=== PATIENT | male | born 1930 | race Caucasian/White ===

== ENCOUNTER → 2017-09-14 | Outpatient (CLI) | payer MEDICARE, BC ==
[~2017-09-14] MED LIST: ASPI1TAB57 PO; ASPI81TA82 PO; FINA1TAB2 PO; FINA5TAB2 PO; GABA100C4 PO; GLIM2TAB PO; LISI-363 PO; LISI-515 PO; PERC5TAB12 PO; SIMV40TA PO; VICT18IN SQ; ZOCO40TA PO; fentaNYL CITRATE 250 MCG/5 ML AMP ONE
[2017-09-14 14:00] LABS: BICARBONATE 27.2 MEQ/L (21.0-32.0); CALCIUM 9.6 MG/DL (8.5-10.1); CREATININE 1.52 MG/DL (0.60-1.30); PROTHROMBIN TIME - PATIENT 10.2 SEC (9.8-11.6)
[2017-09-14 14:01] LABS: HEMOGLOBIN 14.8 GM/DL (13.0-17.0); MEAN CELL VOLUME 90.8 FL (80.0-100.0); MEAN CORPUSCULAR HEMOGLOBIN 30.6 PG (27.0-34.0); MEAN CORPUSCULAR HGB CONC 33.7 % (32.0-36.0); MEAN PLATELET VOLUME 10.1 FL (7.0-11.0); PLATELET COUNT 154 TH/MM3 (150-450); RED BLOOD COUNT 4.84 MIL/MM3 (4.50-5.90); RED CELL DISTRIBUTION WIDTH 13.6 % (11.6-17.2); WHITE BLOOD COUNT 8.8 TH/MM3 (4.0-11.0)
--- NOTE | 2017-09-15 15:27 | EKG ---
Date Performed: 09/14/2017 Time Performed: 13:32:18 PTAGE: 87 years EKG: Sinus rhythm NORMAL ECG NO PREVIOUS TRACING DOCTOR: Danie Lind Interpretating Date/Time 09/15/2017 15:21:42
== END ==
LOC: CPRE 13:03
PROVIDERS: ATTEND Surgery
DX: Z01.812 Encounter for preprocedural laboratory examination (principal); Z01.810 Encounter for preprocedural cardiovascular examination; I71.4 Abdominal aortic aneurysm, without rupture
CPT/HCPCS: 36415; 80048; 85027; 85610; 93005

== ENCOUNTER 2017-09-17 07:08 | Inpatient (IN) | payer MEDICARE, BC ==
[~2017-09-17] VITALS: Ht 177.8 cm; Wt 91.2 kg
[~2017-09-17 07:08] MED LIST changes: -PERC5TAB12 PO; -fentaNYL CITRATE 250 MCG/5 ML AMP ONE
[2017-09-17] MEDS ORDERED: PROTAMINE SULFATE 50 MG/5 ML VIAL ONE (07:33)
[2017-09-17] MEDS ORDERED: HEPARIN SODIUM - IV 10,000 UNITS/10 ML VIAL ONE (07:33)
[2017-09-17] MEDS ORDERED: THROMBIN (TOPICAL) 20,000 UNIT SPRAY KIT ONE (07:34)
[2017-09-17] MEDS ORDERED: ceFAZolin 2 GM PREMIX 50 ML ONE (07:34)
[2017-09-17] MEDS ORDERED: LACTATED RINGER'S 1000 ML IV PRN (07:45)
[2017-09-17] MEDS ORDERED: POVIDONE IODINE 5% (ANTISEPSIS KIT) 4 APPLICATIONS EACH NARE PRN (07:45)
[2017-09-17] MEDS ORDERED: SODIUM CHLORID 0.9% 500 ML IV PRN (07:45)
[2017-09-17] MEDS ORDERED: CHLORHEXIDINE GLUCONATE 2 % 1 PACK (2 CLOTHS) TOPICAL PRN (07:45)
[2017-09-17] MEDS ORDERED: METOPROLOL TARTRATE 25 MG TAB PO PRN (07:45)
--- NOTE | 2017-09-17 08:47 | PD.VS.PN ---
Pre-operative Note Pre-operative diagnosis: AAA Planned procedure: EVAR Interval History: Pt has been feeling well. No F/C or other changes in health that would preclude OR. Labs: Hct 44 creatinine 1.5 INR 1.0 Blood: T&S Imaging: CTA reviewed Orders: NPO Ancef 2g IV OCTOR Post-operative destination: PACU, CPCU Operative site marked: No (aortic surgery) Consent: Informed consent has been obtained from Christiano Zayas. I have explained the procedure in detail and discussed the risks, benefits, and potential complications. All questions have been answered. Patient contact information: Fred[place] [phone] David Cotter MD Sep 17, 2017 08:47
[2017-09-17] MEDS ORDERED: IOHEXOL 350 MG/ML 50 ML BTL (for RAD DIAG) IVCONTRAST ONE (10:32)
--- NOTE | 2017-09-17 10:38 | HHI.PR ---
cc: David Cotter MD Immediate Post Op Note Procedure Date: Sep 17, 2017 Pre Op Diagnosis: AAA Post Op Diagnosis: AAA Surgeon: David Cotter Director [employer] Engineering(s): David Vicente Procedure: EVAR with 2 docking limbs B MASTER SHIP Perclose (18F R, 14F L) Findings: successful EVAR Strong B LE Doppler signals Additional Information: 9 min fluoroscopy time 60mL IV contrast Complications: none Specimen(s) removed: none Estimated blood loss: 50mL Anesthesia: General Drains: None Fluids: 1600mL IVF Urinary Output (mLs): 150 Patient to: PACU Patient Condition: Good Implant/Devices: SEE IMPLANT LOG (if applicable) Date/Time of Procedure: SEE SURGICAL CARE RECORD David Cotter MD Sep 17, 2017 10:37
[2017-09-17] MEDS ORDERED: HYDROmorphone HCL 2 MG TAB PO PRN (10:45)
[2017-09-17] MEDS ORDERED: LACTULOSE SYRUP 20 GM/30 ML CUP PO PRN (10:45)
[2017-09-17] MEDS ORDERED: MAGNESIUM HYDROXIDE SUSP 30 ML CUP PO PRN (10:45)
[2017-09-17] MEDS ORDERED: SENNOSIDES 8.6 MG TAB PO PRN (10:45)
[2017-09-17] MEDS ORDERED: BISACODYL 10 MG SUPP RECTAL PRN (10:45)
[2017-09-17] MEDS ORDERED: DO NOT ADM ANY ANTICOAGULANT DRUGS PRN (11:30)
[2017-09-17] MEDS ORDERED: *morphine SULFATE 4 MG/ML PERIprocedure ONLY ONE ×2 (11:31→11:51)
[2017-09-17] MEDS ORDERED: NEOSTIGMINE 5 MG/5 ML SYRINGE IV PUSH ONE (12:00)
[2017-09-17] MEDS ORDERED: ROCURONIUM INJ 50 MG/5 ML SYRINGE IV PUSH ONE (12:00)
[2017-09-17] MEDS ORDERED: SODIUM CHLORID 0.9% 500 ML INJ 500 ML IV ONE (12:00)
[2017-09-17] MEDS ORDERED: ONDANSETRON HCL 4 MG/2 ML VIAL IV ONE (12:00)
[2017-09-17] MEDS ORDERED: NORMOSOL R INJ 1,000 ML IV ONE (12:00)
[2017-09-17] MEDS ORDERED: GLYCOPYRROLATE 1 MG/5 ML SYRINGE IV PUSH ONE (12:00)
[2017-09-17] MEDS ORDERED: DEXAMETHASONE SOD PHOS 4 MG/ML VIAL IV ONE (12:00)
[2017-09-17] MEDS ORDERED: PHENYLEPH/NS 1000 MCG/10 ML SYR IV ONE (12:00)
[2017-09-17] MEDS ORDERED: PROPOFOL 200 MG/20 ML AMP IV ONE (12:00)
[2017-09-17] MEDS ORDERED: fentaNYL CITRATE 250 MCG/5 ML AMP IV ONE (12:00)
[2017-09-17] MEDS ORDERED: LIDOCAINE HCL 1% PF 5 ML SYRINGE OTHER ONE (12:00)
[2017-09-17 17:44] VITALS: BP 187/91; PULSE 55; RESP 18; TEMP 97.6; O2SAT 98
[2017-09-17 19:00] VITALS: BP 135/63; PULSE 91; RESP 18; TEMP 98.8; O2SAT 97
[2017-09-17] MEDS ORDERED: GABAPENTIN 100 MG CAP PO SCH (21:00)
[2017-09-17] MEDS ORDERED: ATORVASTATIN 40 MG TAB PO SCH (21:00)
[2017-09-17] MEDS: DOCUSATE SODIUM 50 MG/SENNA 8.6 MG TAB PO SCH (21:00)
[2017-09-17] MEDS ORDERED: FAMOTIDINE 20 MG TAB PO SCH (21:00)
[2017-09-17] MEDS: FAMOTIDINE 20 MG TAB PO SCH (21:01)
[2017-09-17 23:00] VITALS: BP 129/63; PULSE 89; RESP 18; TEMP 98.7; O2SAT 98
[2017-09-18] VITALS (7 sets, daily range): BP systolic 136–145; BP diastolic 63–67; PULSE 68–88; RESP 18–22; TEMP 98.2–98.6; O2SAT 97–98
[2017-09-18 04:45] LABS: HEMOGLOBIN 13.2 GM/DL (13.0-17.0); MEAN CELL VOLUME 91.8 FL (80.0-100.0); MEAN CORPUSCULAR HEMOGLOBIN 30.3 PG (27.0-34.0); MEAN PLATELET VOLUME 9.9 FL (7.0-11.0); PLATELET COUNT 131 TH/MM3 (150-450); RED BLOOD COUNT 4.36 MIL/MM3 (4.50-5.90); RED CELL DISTRIBUTION WIDTH 13.5 % (11.6-17.2); WHITE BLOOD COUNT 11.5 TH/MM3 (4.0-11.0)
[2017-09-18 05:00] LABS: BICARBONATE 24.6 MEQ/L (21.0-32.0); CALCIUM 8.4 MG/DL (8.5-10.1); CREATININE 1.74 MG/DL (0.60-1.30)
[2017-09-18] MEDS ORDERED: ASPIRIN EC 81 MG TABEC PO SCH (09:00)
[2017-09-18] MEDS ORDERED: LIRAGLUTIDE 0.6 MG SQ SCH (09:00)
[2017-09-18] MEDS ORDERED: FINASTERIDE 5 MG TAB PO SCH (09:00)
[2017-09-18] MEDS ORDERED: LISINOPRIL 20 MG TAB PO SCH (09:00)
--- NOTE | 2017-09-18 09:14 | PD.VS.PN ---
Subjective POD #: 1 Procedure(s): EVAR with 2 docking limbs B PHYSICAL PLANT MANAGER Perclose (18F R, 14F L) Subjective/Hospital Course Pt sitting in chair alert in NAD w/o complaints Pt denied abdominal/back pain Bilat groins soft w/o hematoma or swelling LE warm w/ motor intact Objective Vitals/I&O Date Time Temp Pulse Resp B/P (MAP) Pulse Ox O2 Delivery O2 Flow Rate FiO2 09/18/17 08:00 73 09/18/17 07:00 98.2 72 18 136/63 (87) 97 09/18/17 07:00 68 09/18/17 06:00 88 09/18/17 03:00 80 09/18/17 03:00 98.6 80 22 145/67 (93) 97 09/17/17 23:00 98.7 89 18 129/63 (85) 98 09/17/17 23:00 89 09/17/17 19:43 Nasal Cannula 2.00 09/17/17 19:00 98.8 91 18 135/63 (87) 97 09/17/17 19:00 91 09/17/17 18:15 74 14 143/67 (92) 98 Nasal Cannula 3 09/17/17 18:00 72 14 153/69 (97) 98 Nasal Cannula 3 09/17/17 17:00 71 14 143/67 (92) 99 Nasal Cannula 3 09/17/17 16:00 72 14 133/63 (86) 98 Nasal Cannula 3 09/17/17 15:00 87 14 156/74 (101) 98 Nasal Cannula 3 09/17/17 14:00 67 14 130/60 (83) 98 Nasal Cannula 3 09/17/17 13:00 71 14 146/68 (94) 98 Nasal Cannula 3 09/17/17 12:00 64 14 134/63 (86) 97 Nasal Cannula 3 09/17/17 11:45 62 14 142/64 (90) 99 Nasal Cannula 3 09/17/17 11:30 59 14 135/66 (89) 99 Nasal Cannula 3 09/17/17 11:15 63 14 138/69 (92) 98 Nasal Cannula 3 09/17/17 11:00 65 14 131/65 (87) 96 Nasal Cannula 3 09/17/17 10:47 97.4 78 14 141/72 (95) 94 Nasal Cannula 3 09/18/17 09/18/17 09/18/17 07:00 15:00 23:00 Intake Total 240 ml Output Total 500 ml Balance -260 ml Exam: GENERAL: GCS 15, NAD, A&OX3 SKIN: LE Warm and dry w/ motor intact bilat groins s/nt w/o hematoma or swelling CARDIOVASCULAR: Regular rate and rhythm without murmurs, gallops, or rubs. RESPIRATORY: Breath sounds equal bilaterally. No accessory muscle use. GASTROINTESTINAL: Abdomen soft, non-tender, nondistended. MUSCULOSKELETAL: No cyanosis, or edema. Pt w/o pain Laboratory Laboratory Tests Test 09/18/17 03:45 White Blood Count 11.5 Red Blood Count 4.36 Hemoglobin 13.2 Hematocrit 40.0 Mean Corpuscular Volume 91.8 Mean Corpuscular Hemoglobin 30.3 Mean Corpuscular Hemoglobin Concent 33.0 Red Cell Distribution Width 13.5 Platelet Count 131 Mean Platelet Volume 9.9 Blood Urea Nitrogen 32 Creatinine 1.74 Random Glucose 249 Calcium Level 8.4 Sodium Level 138 Potassium Level 4.5 Chloride Level 105 Carbon Dioxide Level 24.6 Anion Gap 8 Estimat Glomerular Filtration Rate 37 Assessment and Plan Assessment: (1) AAA (abdominal aortic aneurysm) without rupture (2) S/P AAA (abdominal aortic aneurysm) repair Plan 87/ M s/p EVAR Pt w/o complaints Doing well Pt voided post cath removal w/o difficulties Plan Discussed post operative care and management w/ pt Pt clear for d/c Arranged out pt f/u with a surveillance CTA Sita Montiel NP [facility] [phone] Sita Montiel [facility] Sep 18, 2017 09:14
[2017-09-18] MEDS ORDERED: PERC5TAB12 PO (09:15)
--- NOTE | 2017-09-18 09:21 | PD.VS.DC ---
Discharge Summary Admission Date: Sep 17, 2017 at 07:08 Discharge Date: Sep 18, 2017 Admission Diagnosis: (1) AAA (abdominal aortic aneurysm) without rupture Discharge Diagnosis: (1) AAA (abdominal aortic aneurysm) without rupture ICD Codes: I71.4 - Abdominal aortic aneurysm, without rupture (2) S/P AAA (abdominal aortic aneurysm) repair ICD Codes: Z98.890 - Other specified postprocedural states; Z86.79 - Personal history of other diseases of the circulatory system Brief History from admission 87/M with a PMH of an AAA w/o rupture Pt admitted for repair Procedure(s): EVAR with 2 docking limbs B LEAD DENTAL ASSISTANT Perclose (18F R, 14F L) Significant Findings GENERAL: GCS 15, NAD, A&OX3 SKIN: LE Warm and dry w/ motor intact bilat groins s/nt w/o hematoma or swelling CARDIOVASCULAR: Regular rate and rhythm without murmurs, gallops, or rubs. RESPIRATORY: Breath sounds equal bilaterally. No accessory muscle use. GASTROINTESTINAL: Abdomen soft, non-tender, nondistended. MUSCULOSKELETAL: No cyanosis, or edema. Pt w/o pain Laboratory Tests Test 09/18/17 03:45 White Blood Count 11.5 TH/MM3 (4.0-11.0) Red Blood Count 4.36 MIL/MM3 (4.50-5.90) Platelet Count 131 TH/MM3 (150-450) Blood Urea Nitrogen 32 MG/DL (7-18) Creatinine 1.74 MG/DL (0.60-1.30) Random Glucose 249 MG/DL (74-106) Calcium Level 8.4 MG/DL (8.5-10.1) Estimat Glomerular Filtration Rate 37 ML/MIN (>89) Hospital Course: 87/M with a PMH of an AAA w/o rupture Pt admitted for repair Pt s/p EVAR POD #: 1 S/P EVAR with 2 docking limbs B LEAD DENTAL ASSISTANT Perclose (18F R, 14F L) Pt sitting in chair alert in NAD w/o complaints Pt denied abdominal/back pain Bilat groins soft w/o hematoma or swelling LE warm w/ motor intact Pt voids post cath removal w/o difficulty Pt clear for d/c Arranged out pt f/u with a surveillance CTA A/P post EVAR Allergies Coded Allergies Type Severity Reaction Last Updated Verified tetanus toxoid, adsorbed Allergy Severe 09/17/17 No 09/16/17 09/16/17 09/17/17 09/17/17 09/18/17 09/18/17 06:00 18:00 06:00 18:00 06:00 18:00 Intake Total 1960 ml 240 ml Output Total 800 ml 500 ml Balance 1160 ml -260 ml Intake Oral 360 ml 240 ml Other 1600 ml Output Urine Total 750 ml 500 ml Estimated Blood Loss 50 ml # Voids 3 # Bowel Movements 0 Laboratory Tests Test 09/18/17 03:45 White Blood Count 11.5 TH/MM3 Red Blood Count 4.36 MIL/MM3 Hemoglobin 13.2 GM/DL Hematocrit 40.0 % Mean Corpuscular Volume 91.8 FL Mean Corpuscular Hemoglobin 30.3 PG Mean Corpuscular Hemoglobin Concent 33.0 % Red Cell Distribution Width 13.5 % Platelet Count 131 TH/MM3 Mean Platelet Volume 9.9 FL Blood Urea Nitrogen 32 MG/DL Creatinine 1.74 MG/DL Random Glucose 249 MG/DL Calcium Level 8.4 MG/DL Sodium Level 138 MEQ/L Potassium Level 4.5 MEQ/L Chloride Level 105 MEQ/L Carbon Dioxide Level 24.6 MEQ/L Anion Gap 8 MEQ/L Estimat Glomerular Filtration Rate 37 ML/MIN Orders Procedure Category Date Status Time Lactated Ringer's MED 09/17/17 In Process 1000 Ml Inj (Lr 1000 M 07:45 Sodium Chlorid 0.9% MED 09/17/17 In Process 500 Ml Inj (Ns 500 M 07:45 Metoprolol Tartrate MED 09/17/17 In Process (Lopressor) 07:45 Povidone Iod 5% MED 09/17/17 In Process Antisepsis Kit 07:45 Chlorhexidine 2% MED 09/17/17 In Process Cloth (Chlorhexidine 07:45 Protamine Sulfate Inj MED 09/17/17 Complete (Protamine Sulfate 07:33 Heparin Inj (Heparin MED 09/17/17 Complete Inj) 07:33 Thrombin Top [place] MED 09/17/17 Complete (Thrombin Top [place]) 07:34 Cefazolin 2 Gm Premix MED 09/17/17 Complete (Ancef 2 Gm Premix 07:34 Type And Screen BBK 09/17/17 Complete 07:46 Endovascular Cath CATH 09/17/17 Logged Urinary Catheter SUNNI 09/17/17 Complete Management 09:41 Iohexol 350 Inj MED 09/17/17 Complete (Omnipaque 350 Inj) 10:32 Admit To Inpatient ADMITTING 09/17/17 Transmitted Code Status CODE 09/17/17 Transmitted 10:38 Vital Signs (Adult) SUNNI 09/17/17 In Process 10:38 Senior Maintenance Mechanic / SUNNI 09/17/17 In Process Telemetry 10:38 Activity Oob Ad Christianne SUNNI 09/18/17 In Process 08:00 Activity Bed Rest SUNNI 09/17/17 In Process 10:38 Precautions SUNNI 09/17/17 In Process 10:38 Diet Heart Healthy DIET 09/17/17 Transmitted Lunch Basic Metabolic Panel LAB 09/18/17 Complete (Bmp) 06:00 Cbc No Diff, Includes LAB 09/18/17 Complete Plts 06:00 Famotidine (Pepcid) MED 09/17/17 Complete 21:00 Atorvastatin (Lipitor) MED 09/17/17 In Process 21:00 Oxycodone (Roxicodone) MED 09/17/17 In Process 10:45 Hydromorphone MED 09/17/17 In Process (Dilaudid) 10:45 Scd Bilateral/Knee SUNNI 09/17/17 In Process High 10:38 Docusate Sodium-Senna MED 09/17/17 In Process (Keily-Colace) 21:00 Magnesium Hydroxide MED 09/17/17 In Process Liq (Milk Of Magnesi 10:45 Sennosides (Senokot) MED 09/17/17 In Process 10:45 Bisacodyl Supp MED 09/17/17 In Process (Dulcolax Supp) 10:45 Lactulose Liq MED 09/17/17 In Process (Lactulose Liq) 10:45 Inpatient ADMITTING 09/17/17 Transmitted Certification Remove Urinary SUNNI 09/17/17 In Process Catheter 17:00 Aspirin Ec (Ecotrin MED 09/18/17 In Process Ec) 09:00 Finasteride (Proscar) MED 09/18/17 In Process 09:00 Gabapentin (Neurontin) MED 09/17/17 In Process 21:00 Lisinopril (Prinivil) MED 09/18/17 In Process 09:00 Patient Own Medication MED 09/18/17 In Process 09:00 Enoxaparin Inj MED 09/18/17 In Process (Lovenox Inj) 10:00 [facility] MED 09/17/17 In Process Information 11:30 *Morphine Inj MED 09/17/17 Complete (*Morphine Inj 11:31 *Morphine Inj MED 09/17/17 Complete (*Morphine Inj 11:51 Fentanyl Inj MED 09/17/17 Complete (Fentanyl Inj) 12:00 Famotidine (Pepcid) MED 09/17/17 In Process 21:00 Am Admit Pre Op Care [facility] 09/17/17 Complete Class Iv Pacu Ea 30 [facility] 09/17/17 Complete MIN General/Pacu [facility] 09/17/17 Complete Post Anesthesia Oxygen [facility] 09/17/17 Complete Pacu Cpcu Holding [facility] 09/17/17 Complete Hourly Attending Discharge DISCHARGE 09/18/17 Transmitted Order 09:15 Vital Signs Date Time Temp Pulse Resp B/P (MAP) Pulse Ox O2 Delivery O2 Flow Rate FiO2 09/18/17 08:00 73 09/18/17 07:00 98.2 72 18 136/63 (87) 97 09/18/17 07:00 68 09/18/17 06:00 88 09/18/17 03:00 80 09/18/17 03:00 98.6 80 22 145/67 (93) 97 09/17/17 23:00 98.7 89 18 129/63 (85) 98 09/17/17 23:00 89 09/17/17 19:43 Nasal Cannula 2.00 09/17/17 19:00 98.8 91 18 135/63 (87) 97 09/17/17 19:00 91 09/17/17 18:15 74 14 143/67 (92) 98 Nasal Cannula 3 09/17/17 18:00 72 14 153/69 (97) 98 Nasal Cannula 3 09/17/17 17:00 71 14 143/67 (92) 99 Nasal Cannula 3 09/17/17 16:00 72 14 133/63 (86) 98 Nasal Cannula 3 09/17/17 15:00 87 14 156/74 (101) 98 Nasal Cannula 3 09/17/17 14:00 67 14 130/60 (83) 98 Nasal Cannula 3 09/17/17 13:00 71 14 146/68 (94) 98 Nasal Cannula 3 09/17/17 12:00 64 14 134/63 (86) 97 Nasal Cannula 3 09/17/17 11:45 62 14 142/64 (90) 99 Nasal Cannula 3 09/17/17 11:30 59 14 135/66 (89) 99 Nasal Cannula 3 09/17/17 11:15 63 14 138/69 (92) 98 Nasal Cannula 3 09/17/17 11:00 65 14 131/65 (87) 96 Nasal Cannula 3 09/17/17 10:47 97.4 78 14 141/72 (95) 94 Nasal Cannula 3 09/17/17 08:08 97.7 83 20 155/88 (110) 96 Discharge Condition: Good Discharge Disposition: Discharge Home Discharge Instructions: DIET You may resume a diabetic diet ACTIVITY Activity as tolerated You may shower then pat dry your incision (groin) No tub baths or swimming until your incisions are fully healed Medications You may resume all your home medication Any questions or concerns: Call [facility] [phone] Sita Montiel Sep 18, 2017 09:21
[2017-09-18] MEDS: FAMOTIDINE 20 MG TAB PO SCH (09:27)
[2017-09-18] MEDS: DOCUSATE SODIUM 50 MG/SENNA 8.6 MG TAB PO SCH (09:28)
[2017-09-18] MEDS ORDERED: ENOXAPARIN SODIUM 40 MG/0.4 ML SYRINGE SQ SCH (10:00)
--- NOTE | 2017-09-18 10:01 | MP ---
cc: David Cotter MD DATE OF OPERATION: 09/17/2017 PREOPERATIVE DIAGNOSIS: Abdominal aortic aneurysm. POSTOPERATIVE DIAGNOSIS: Abdominal aortic aneurysm. PROCEDURES PERFORMED: 1. Endovascular exclusion of abdominal aortic aneurysm using bifurcated biiliac devices. 2. Bilateral common femoral artery percutaneous access and closure of an 8-Mongolian sheath on the right and 16-Mongolian sheath on the left. ATTENDING SURGEON: Paco Cotter MD EFFICIENCY EXPERT SURGEON: David Pascal ANESTHESIA: General. INDICATIONS FOR PROCEDURE: Mr. Zayas is an 87-year-old gentleman with an intact 5.6 cm abdominal aortic aneurysm. He appears anatomically to be amenable to endovascular repair and he was taken to the operating room for this. DESCRIPTION OF PROCEDURE: Informed consent was obtained from the patient. He was taken to the operating room and placed supine on the operating table. An appropriate timeout was taken to ensure the patient's identity, operative site and planned procedure. The administration of 2 grams of Ancef was initiated prior to skin incision and will be discontinued after single preoperative dose. Every one in the room agreed with the timeout and we proceeded. He was prepped from his nipples to his knees. A 21-gauge micropuncture needle was used to access bilateral common femoral arteries. This was exchanged using Seldinger technique through a micropuncture sheath through which a 0.035 STORQ wire was introduced. The micropuncture sheath was exchanged for a 5-Mongolian sheath, which was used to dilate skin and subcutaneous tract and arteriotomies. Two Perclose ProGlide sutures were inserted and not tied down, but these were tagged and will be used later. A short 8-Mongolian sheath was placed on the right and a long 8-Mongolian sheath was placed on the left. The patient was systemically heparinized with 9000 units of intravenous heparin and throughout the remainder of the case, he was kept greater than 250. A catheter was used to exchange the right hand STORQ wire for a Lunderquist wire and over the left hand STORQ wire, a marker flush catheter was placed. The 8-Mongolian sheath on the right was removed and Matti dilator was used to dilate the skin and subcutaneous tract and arteriotomy up to 18-Mongolian and the main device, which was a Cook 2896, was inserted. An interval angiography was performed to locate the renal arteries and device was deployed to the proximal edge of the fabric, this was immediately caudal to the renal arteries. The contralateral gate was oriented in the appropriate fashion and the top cap was then deployed with interval angiography to locate the renal arteries. A Roadrunner wire was placed through the left hand catheter. The catheter was changed for a Cobra catheter. Using the Cobra catheter and Roadrunner wire, we were able to navigate into the contralateral gate and this was confirmed angiographically. The Roadrunner was then exchanged for a Lunderquist and the Cobra was exchanged for a marker catheter. The left hypogastric artery was identified and the left limb was then selected, which was a 16 x 74 limb. The marker catheter was removed. The 8-Mongolian sheath was removed. Live dilator was used to dilate up the skin and subcutaneous tract arteriotomy up to 16-Mongolian and a contralateral limb, 16 x 74 limb, was introduced, placed with sufficient overlap and deployed without difficulty. The delivery system was removed. The remainder of the main body was delivered. The top cap was recaptured and the delivery system was removed except for the 18-Mongolian sheath on the right. Over the Lunderquist wire on the right hand side, a marker catheter was then placed. Angiogram was performed, which located, the right hypogastric artery and the ipsilateral limb, which was a 16 x 56, was then introduced, placed with sufficient overlap and deployed without difficulty. The delivery system except for the sheath was removed. A Coda balloon was used to balloon the proximal and distal end, as well as all junctions and a completion angiogram showed excellent result, with only a sluggish type 2 endoleak. There was good opacification of both renal arteries and both hypogastric arteries. The wire catheter and sheath were removed. The groins were hemostatic. There were signals in the feet. The heparin was reversed with protamine and the wounds were closed with 4-0 Monocryl. Sponge and needle counts were correct at the end of the case. I was present, scrubbed and performed the entire procedure. MD MARIELOS Guevara/ESTEFANÍA , 08:50 PM , 09:19 PM
== END 2017-09-18 10:30 | disposition home or self-care (01) | DRG 269 ==
LOC: HSDI 07:08 → HCPC 18:25
PROVIDERS: ADMIT Surgery; ATTEND Surgery
PROC: 04V03E6 (ICD-10-PCS; principal; 2017-09-17 08:56)
DX: I71.4 Abdominal aortic aneurysm, without rupture (principal)
CPT/HCPCS: 36415; 80048; 85027; 85610; 86850; 86900; 86901; 93005; C1725; C1769; C1874; J0690; J1100; J1644; J1650; J2270; J2370; J2405; J2710; J2720; J3010; J7040; J7120; Q9967